=== PATIENT | female | born 1985 | race African-American/Black ===

== ENCOUNTER 2016-09-25 11:12 | Emergency (ER) | payer MEDICAID, OTHER ==
[~2016-09-25] VITALS: Ht 170.2 cm; Wt 70.0 kg
[~2016-09-25 11:12] MED LIST: BACT800T5 PO; CEPH500C3 PO; DOXY100T PO; NAPR-576 PO; NAPR250T57 PO
[2016-09-25 11:14] VITALS: BP 141/92; PULSE 80; RESP 20; TEMP 98.1; O2SAT 100
[2016-09-25] MEDS ORDERED: ACETAMINOPHEN/HYDROcodone 325 MG/5 MG TAB PO ONE (12:45)
[2016-09-25] MEDS ORDERED: MOBI15TA PO (12:47)
[2016-09-25] MEDS ORDERED: CYCL1TAB29 PO (12:47)
--- NOTE | 2016-09-25 12:48 | PD ---
HPI Chief Complaint: Back/ Neck Pain or Injury Time Seen by Provider: 12:47 Travel History International Travel<30 days: No Contact w/Intl Traveler<30days: No Traveled to known affect area: No History of Present Illness HPI 31-year-old female with a history of chronic low back pain presents to the emergency department for evaluation of low back pain and left knee pain. Patient denies any new injury or trauma to her back or knee. States it has been bothering her for the past 3 days because she ran out of her pain medications for her back. States that she missed her appointment with her pain management physician 3 days ago and has been calling trying to reschedule her appointment. States that she typically takes oxycodone 30 mg tablets, Flexeril and Mobic for her low back pain. She's been out of all of these medications. She also complains of pain in the left knee, this is been going on for several years as well, no new injury or trauma. Denies any fever, chills, nausea, vomiting, numbness or tingling, weakness. Denies , she is currently on her menstrual cycle. No other complaints. PFSH Past Medical History Diminished Hearing: No Herniated Disk: Yes Musculoskeletal: Yes (PT C/O CHRONIC BACK PAIN S/P HER EPIDURAL DURING CHILDBIRTH) Immunizations Current: Yes ?: Not : 6 Para: 2 Miscarriage: 3 Tubal Ligation: Yes Social History Alcohol Use: No Tobacco Use: Yes (1 ppd) Substance Use: No Allergies-Medications (Allergen,Severity, Reaction): Coded Allergies: Codeine (Verified Allergy, Severe, 09/25/16) PT DENIES ALLERGY. STATES SHE HAS TAKEN IT SINCE AND HAD NO PROBLEMS. 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 STATES SHE HAS TAKEN IT SINCE AND HAD NO PROBLEMS. Reported Meds & Prescriptions Reported Meds & Active Scripts Active Mobic (Meloxicam) 15 Mg Tab 15 Mg PO DAILY 7 Days Flexeril (Cyclobenzaprine HCl) 10 Mg Tab 10 Mg PO TID 7 Days Review of Systems Except as stated in HPI: all other systems reviewed are Neg Physical Exam Narrative GENERAL: Well-nourished and well-developed pleasant female patient in no acute distress who is nontoxic appearing. SKIN: Warm and dry. HEAD: Normocephalic and atraumatic. EYES: No injection, drainage, or hyphema noted. PERRLA. EOMI. ENT: No nasal drainage noted. Oropharynx is clear. NECK: Supple and the trachea is midline. CARDIOVASCULAR: Regular rate and rhythm. RESPIRATORY: Breath sounds are equal bilaterally with no accessory muscle use, wheezing, rhonchi, or crackles. MUSCULOSKELETAL: Left SLR positive. No obvious deformities, swelling, cyanosis , or ecchymosis is present throughout the upper and lower extremities. Patient has full range of motion without any signs of neurovascular compromise. Strength 5/5 upper and lower extremities and equal bilaterally. BACK: Nontender without any obvious deformities, bony point tenderness, or crepitus noted throughout the thoracic and lumbar vertebrae. NEUROLOGICAL: Awake, alert, and oriented. Normal speech and gait. Cranial nerves are grossly intact. Data Data Last Documented VS Vital Signs Date Time Temp Pulse Resp B/P Pulse Ox O2 Delivery O2 Flow Rate FiO2 09/25/16 11:14 98.1 80 20 141/92 100 Room Air Orders Acetamin-Hydrocod 325-5 Mg ([place] 5-325 (09/25/16 12:45) MDM Medical Decision Making Medical Screen Exam Complete: Yes Emergency Medical Condition: Yes Differential Diagnosis Chronic low back pain versus knee sprain versus arthritis versus discogenic pain Narrative Course 31-year-old female presents to the emergency department for evaluation of chronic low back pain and left knee pain for the past 3 days after running out of her pain medications. Patient is afebrile, vital signs are stable. No focal neurologic deficits or red flag signs or symptoms. The patient will be given a dose of Lortab 5325 milligrams here in the emergency department. I discussed with her that we will refill her nonnarcotic medications. She is instructed to follow-up with her pain management physician. Patient is agreeable to this plan. Diagnosis Primary Impression: Chronic low back pain Qualified Code: M54.5 - Chronic low back pain without sciatica, unspecified back pain laterality Referrals: Primary Care Physician Patient Instructions: Back Pain (ED), General Instructions Additional Instructions: Take medications as prescribed with food and a full glass of water. Do not take Flexeril with alcohol or while driving. Follow-up with your pain management physician. Return to the ED for any acute worsening of symptoms. Med/Other Pt SpecificInfo: Prescription(s) given Scripts Meloxicam (Mobic)15 Mg Tab15 Mg PO DAILY 7 Days Ref 0 Prov:Jaye Elizalde MD 09/25/16 Cyclobenzaprine (Flexeril)10 Mg Tab10 Mg PO TID 7 Days Ref 0 Prov:Jaye Elizalde MD 09/25/16 Disposition: 01 DISCHARGE HOME Condition: Stable Nette Pratt Sep 25, 2016 12:48
== END 2016-09-25 13:10 | disposition home or self-care (01) ==
LOC: NEPB 11:12
DX: M54.5 Low back pain (principal); F17.210 Nicotine dependence, cigarettes, uncomplicated
CPT/HCPCS: 99283

== ENCOUNTER 2016-12-14 14:49 | Emergency (ER) | payer OTHER ==
[~2016-12-14 14:49] MED LIST changes: -BACT800T5 PO; -CEPH500C3 PO; +CYCL1TAB29 PO; -DOXY100T PO; +MOBI15TA PO; -NAPR-576 PO; -NAPR250T57 PO
[2016-12-14 14:50] VITALS: BP 140/92; PULSE 92; RESP 20; TEMP 98.7; O2SAT 99
[2016-12-14 15:55] LABS: BACTERIA, URINE RARE /hpf; BLOOD, URINE TRACE (NEG); COMMENT (UR) CULTURE INDICATED; CULTURE IF INDICATED CULTURE INDICATED; GLUCOSE,URINE NEG (NEG); KETONE, URINE NEG (NEG); MUCUS URINE FEW /lpf (OCC); NITRITE,URINE NEG (NEG); SQUAMOUS EPITHELIAL CELL URINE 7 /hpf (0-5); URINE COLOR YELLOW (YELLW/STRAW)
[2016-12-14] MEDS ORDERED: AMOX875T PO (17:18)
[2016-12-14] MEDS ORDERED: IBUP800T23 PO (17:18)
--- NOTE | 2016-12-14 17:18 | PD ---
HPI Chief Complaint: Abdominal Pain Time Seen by Provider: 17:07 Travel History International Travel<30 days: No Contact w/Intl Traveler<30days: No Traveled to known affect area: No History of Present Illness HPI Patient is a 31-year-old female presenting to emergency for evaluation of right lower tooth pain as well as abdominal pain. Patient states that her tooth has been bothering her for 1 week since the filling came out. She reports her pain is a 10 out of 10, is relieved somewhat with a muscle relaxer that she took at home. She has not taken any Tylenol or ibuprofen. She denies any fevers, chills, headache, dysphagia. She has not attempted to contact a dentist. She also presents complaining of suprapubic pressure for one week as well, she states that her PERFORATOR OPERATOR told her to come to the emergency department to be evaluated, patient had a bilateral tubal ligation 2 years ago. She reports her last menstrual cycle was on October 22. [facility] Past Medical History Medical History: Denies Significant Hx Diminished Hearing: No Herniated Disk: Yes Musculoskeletal: Yes (PT C/O CHRONIC BACK PAIN S/P HER EPIDURAL DURING CHILDBIRTH) Immunizations Current: Yes ?: Not LMP: 10/22/16 Menopausal: No : 6 Para: 2 Miscarriage: 3 Tubal Ligation: Yes Past Surgical History Gynecologic Surgery: Yes (BTL) Social History Alcohol Use: No (social) Tobacco Use: Yes (08/25 ppd) Substance Use: No Allergies-Medications (Allergen,Severity, Reaction): Coded Allergies: *MDRO Multi-Drug Resistant Organism (Verified Allergy, Unknown, 09/25/16) 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 Codeine (Verified Adverse Reaction, Mild, 12/14/16) GI UPSET Tylenol #3 (Verified Adverse Reaction, Mild, GI UPSET, 12/14/16) GI UPSET Reported Meds & Prescriptions Reported Meds & Active Scripts Active No Active Prescriptions or Reported Medications Review of Systems Except as stated in HPI: all other systems reviewed are Neg General / Constitutional: No: Fever, Chills Eyes: No: Visual changes HENT: Positive: Dental Difficulties, No: Headaches, Neck Pain Cardiovascular: No: Chest Pain or Discomfort Respiratory: No: Shortness of Breath Gastrointestinal: No: Nausea, Vomiting, Diarrhea, Abdominal Pain Genitourinary: Positive: Pelvic Pain, No: Dysuria, Discharge, Vaginal Bleeding Musculoskeletal: No: Myalgias Neurologic: No: Weakness, Dizziness, Syncope Physical Exam Narrative GENERAL: Well-developed, well-nourished, alert female. Resting comfortably in no acute distress. SKIN: Focused skin assessment warm/dry. HEAD: Atraumatic. Normocephalic. MOUTH: Mucous membranes moist, no lesions, tongue and gums appear normal. Patient has missing and broken teeth in the left lower. No obvious abscess is noted EYES: Pupils equal and round. No scleral icterus. No injection or drainage. ENT: No nasal bleeding or discharge. Mucous membranes pink and moist. NECK: Trachea midline. No JVD. CARDIOVASCULAR: Regular rate and rhythm. No murmur appreciated. RESPIRATORY: No accessory muscle use. Clear to auscultation. Breath sounds equal bilaterally. GASTROINTESTINAL: Abdomen soft, non-tender, nondistended. Hepatic and splenic margins not palpable. No rebound, no guarding, positive bowel sounds. MUSCULOSKELETAL: No obvious deformities. No clubbing. No cyanosis. No edema. NEUROLOGICAL: Awake and alert. No obvious cranial nerve deficits. Motor grossly within normal limits. Normal speech. PSYCHIATRIC: Appropriate mood and affect; insight and judgment normal. Data Data Last Documented VS Vital Signs Date Time Temp Pulse Resp B/P Pulse Ox O2 Delivery O2 Flow Rate FiO2 12/14/16 14:50 98.7 92 20 140/92 99 Room Air Orders Urinalysis - C+S If Indicated (12/14/16 15:21) Ed Urine Pregnancytest Poc (12/14/16 15:21) Urine Culture (12/14/16 15:25) Labs Laboratory Tests Test 12/14/16 15:25 Urine Color YELLOW Urine Turbidity HAZY Urine pH 6.0 Urine Specific [place] 1.021 Urine Protein TRACE mg/dL Urine Glucose (UA) NEG mg/dL Urine Ketones NEG mg/dL Urine Occult Blood TRACE Urine Nitrite NEG Urine Bilirubin NEG Urine Urobilinogen LESS THAN 2.0 MG/DL Urine Leukocyte Esterase LARGE Urine RBC 21 /hpf Urine WBC 53 /hpf Urine Squamous Epithelial 7 /hpf Cells Urine Bacteria RARE /hpf Urine Mucus FEW /lpf Urine Yeast (Budding) OCC Microscopic Urinalysis Comment CULTURE INDICATED MDM Medical Decision Making Medical Screen Exam Complete: Yes Emergency Medical Condition: Yes Medical Record Reviewed: Yes Interpretation(s) Vital Signs Date Time Temp Pulse Resp B/P Pulse Ox O2 Delivery O2 Flow Rate FiO2 12/14/16 14:50 98.7 92 20 140/92 99 Room Air Differential Diagnosis Dysmenorrhea versus dental abscess versus dental caries versus urinary tract infection versus ovarian cyst versus other Narrative Course Patient is a 31-year-old female presenting to the emergency Department with 2 medical complaints. First she's had dental pain for the last week reporting that her filling fell out, there are missing and broken teeth in the left lower side where the pain is. Additionally she reports suprapubic and left flank pain. Urinalysis is indicative of a urinary tract infection. Upon review of patient's medical records she does have a history of a left ovarian cyst. She' s had a tubal ligation and a negative urine test in the emergency department. Patient's abdominal exam was completely benign. Patient was not guarding palpation, and actually seemed bothered by the physical assessment. With a negative urine and benign abdominal exam coupled with a bilateral tubal ligation, there is little reason patient would be at risk for an ectopic . Discussed with my attending physician. Patient's vital signs are stable. She will be treated for a urinary tract infection as well as a dental infection. She will be given a list of local dentists in the area to follow up with. She is encouraged to return to emergency department for any new or worsening symptoms. Patient verbalized understanding of instructions. Patient is stable for discharge. Diagnosis Primary Impression: Pain, dental Additional Impressions: Dental caries noted on examination Urinary tract infection Qualified Code: N39.0 - Urinary tract infection with hematuria, site unspecified Referrals: [facility] Primary Care Physician Patient Instructions: Dental Caries (DC), General Instructions, Urinary Tract Infection in Women (ED) Additional Instructions: Follow-up with a primary doctor or at the [facility] You will need to see a dentist for further evaluation and management of dental pain and dental infection Take medications as directed, complete full course of antibiotic therapy as prescribed even if you begin to feel better Return to emergency department for any new or worsening symptoms Med/Other Pt SpecificInfo: Prescription(s) given, Existing Med Changed Scripts Ibuprofen 800 Mg [id number] Mg PO Q6HR PRN (PAIN) #40 TAB Ref 0 Prov:Mary Crum 12/14/16 Amoxicillin 875 Mg [id number] Mg PO BID 10 Days Ref 0 Prov:Mary Crum 12/14/16 Disposition: 01 DISCHARGE HOME Condition: Stable Mary Crum Dec 14, 2016 17:18
== END 2016-12-14 18:32 | disposition home or self-care (01) ==
LOC: NEPD 14:49
DX: F17.210 Nicotine dependence, cigarettes, uncomplicated (principal); K02.9 Dental caries, unspecified; N39.0 Urinary tract infection, site not specified; B96.89 Other specified bacterial agents as the cause of diseases classified elsewhere
CPT/HCPCS: 81001; 84703; 87086; 99284

== ENCOUNTER 2016-12-25 10:16 | Emergency (ER) | payer MEDICAID, OTHER ==
[~2016-12-25] VITALS: Ht 170.2 cm; Wt 72.0 kg
[~2016-12-25 10:16] MED LIST changes: +AMOX875T PO; -CYCL1TAB29 PO; +IBUP800T23 PO; -MOBI15TA PO
[2016-12-25 10:19] VITALS: BP 162/98; PULSE 91; RESP 20; TEMP 98.1; O2SAT 100
[2016-12-25] MEDS ORDERED: KETOROLAC TROMETHAMINE 30 MG/ML (IVP) VIAL IV PUSH ONE (11:00)
--- NOTE | 2016-12-25 11:27 | RADRPT ---
EXAM DATE/TIME: 12/25/2016 11:08 [place] COMPARISON: CHEST PA & LAT, August 08, 2015, 11:05. INDICATIONS : Chest pain today. MEDICAL HISTORY : None. SURGICAL HISTORY : None. ENCOUNTER: Initial ACUITY: 1 day PAIN SCORE: 9/10 LOCATION: Bilateral chest FINDINGS: PA and lateral views of the chest demonstrate the lungs to be symmetrically aerated without evidence of mass, infiltrate or effusion. The cardiomediastinal contours are unremarkable. Osseous structure s are intact. CONCLUSION: Normal examination. Colby Haddad Jr., MD on December 25, 2016 at 11:25 Board Certified Radiologist. This report was verified electronically.
[2016-12-25 11:45] LABS: AUTOMATED NEUTROPHIL # 6.7 TH/MM3 (1.8-7.7); BASOPHIL % 0.4 % (0.0-2.0); EOSINOPHIL # 0.1 TH/MM3 (0-0.4); EOSINOPHIL % 1.1 % (0.0-4.0); HEMATOCRIT 36.6 % (35.0-46.0); HEMO FLAGS DIFF FINAL; LYMPH % 22.4 % (9.0-44.0); LYMPHOCYTE # 2.2 TH/MM3 (1.0-4.8); MEAN CELL VOLUME 96.1 FL (80.0-100.0); MEAN CORPUSCULAR HEMOGLOBIN 33.3 PG (27.0-34.0); MEAN CORPUSCULAR HGB CONC 34.6 % (32.0-36.0); MONO % 9.1 % (0.0-8.0); PLATELET COUNT 181 TH/MM3 (150-450); RED BLOOD COUNT 3.81 MIL/MM3 (4.00-5.30); RED CELL DISTRIBUTION WIDTH 12.1 % (11.6-17.2); WHITE BLOOD COUNT 9.9 TH/MM3 (4.0-11.0)
[2016-12-25 11:57] LABS: ALT (GPT) 21 U/L (10-53); ANION GAP 8 MEQ/L (5-15); AST (GOT) 23 U/L (15-37); BLOOD UREA NITROGEN 8 MG/DL (7-18); CHLORIDE 108 MEQ/L (98-107); GLOMERULAR FILTRATION RATE 101 ML/MIN (>89); POTASSIUM 3.5 MEQ/L (3.5-5.1); SODIUM (NA) 141 MEQ/L (136-145)
[2016-12-25 12:02] LABS: ALKALINE PHOSPHATASE 63 U/L (45-117); TOTAL BILIRUBIN ADULT 0.4 MG/DL (0.2-1.0)
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
[2016-12-25 12:32] VITALS: BP 129/80; PULSE 75; RESP 18; TEMP 98.7; O2SAT 99
--- NOTE | 2016-12-25 18:26 | EKG ---
Date Performed: 12/25/2016 Time Performed: 10:36:52 PTAGE: 31 years EKG: Sinus rhythm NORMAL ECG Compared to prior tracing no significant change PREVIOUS TRACING on 01/07/2013 DOCTOR: James Guerrero Interpretating Date/Time 12/25/2016 18:23:52
== END 2016-12-25 13:32 | disposition home or self-care (01) ==
LOC: NEPD 10:16
DX: R07.89 Other chest pain (principal); R51 Headache; R07.1 Chest pain on breathing; F17.210 Nicotine dependence, cigarettes, uncomplicated; V18.0XXA Pedal cycle driver injured in noncollision transport accident in nontraffic accident, initial encounter; Y93.55 Activity, bike riding; Y92.9 Unspecified place or not applicable; Y99.8 Other external cause status
CPT/HCPCS: 71020; 80053; 84484; 85025; 85379; 93005; 96374; 99285; J1885

== ENCOUNTER 2017-12-02 11:09 | Emergency (ER) | payer MEDICAID ==
[~2017-12-02] VITALS: Ht 170.2 cm; Wt 76.0 kg
[~2017-12-02 11:09] MED LIST changes: +IBUP1TAB7 PO; -IBUP800T23 PO
[2017-12-02 11:43] VITALS: BP 139/75; PULSE 67; RESP 17; TEMP 98.4; O2SAT 100
[2017-12-02 12:34] LABS: AUTOMATED NEUTROPHIL # 2.7 TH/MM3 (1.8-7.7); BASOPHIL % 0.7 % (0.0-2.0); EOSINOPHIL # 0.4 TH/MM3 (0-0.4); EOSINOPHIL % 6.5 % (0.0-4.0); HEMOGLOBIN 14.1 GM/DL (11.6-15.3); LYMPH % 35.5 % (9.0-44.0); MEAN CELL VOLUME 96.6 FL (80.0-100.0); MEAN CORPUSCULAR HGB CONC 35.2 % (32.0-36.0); MEAN PLATELET VOLUME 9.2 FL (7.0-11.0); MONO % 9.2 % (0.0-8.0); MONOCYTE # 0.5 TH/MM3 (0-0.9); NEUT % 48.1 % (16.0-70.0); PLATELET COUNT 220 TH/MM3 (150-450); RED BLOOD COUNT 4.15 MIL/MM3 (4.00-5.30); RED CELL DISTRIBUTION WIDTH 11.7 % (11.6-17.2); WHITE BLOOD COUNT 5.6 TH/MM3 (4.0-11.0)
[2017-12-02 12:44] LABS: BACTERIA, URINE MANY /hpf; BILIRUBIN, URINE NEG (NEG); BLOOD, URINE TRACE (NEG); GLUCOSE,URINE NEG (NEG); KETONE, URINE NEG (NEG); MUCUS URINE MANY /lpf (OCC); NITRITE,URINE POS (NEG); SQUAMOUS EPITHELIAL CELL URINE 6 /hpf (0-5); URINE COLOR YELLOW (YELLW/STRAW); URINE LEUKOCYTE ESTERASE LARGE (NEG); WHITE BLOOD CELL CLUMPS RARE
[2017-12-02 13:08] LABS: ALBUMIN 4.3 GM/DL (3.4-5.0); ALT (GPT) 24 U/L (10-53); AST (GOT) 20 U/L (15-37); BICARBONATE 29.4 MEQ/L (21.0-32.0); BLOOD UREA NITROGEN 8 MG/DL (7-18); CALCIUM 9.5 MG/DL (8.5-10.1); CHLORIDE 106 MEQ/L (98-107); GLOMERULAR FILTRATION RATE 77 ML/MIN (>89); GLUCOSE,RANDOM 89 MG/DL (74-106); SODIUM (NA) 140 MEQ/L (136-145)
[2017-12-02 13:09] LABS: ALKALINE PHOSPHATASE 79 U/L (45-117); TOTAL BILIRUBIN ADULT 0.3 MG/DL (0.2-1.0)
[2017-12-02] MEDS ORDERED: ZOFR4TAB3 SL (13:58)
[2017-12-02] MEDS ORDERED: MACR100C2 PO (13:58)
--- NOTE | 2017-12-02 13:58 | PD ---
HPI Chief Complaint: GI Complaint Time Seen by Provider: 13:51 Travel History International Travel<30 days: No Contact w/Intl Traveler<30days: No Traveled to known affect area: No History of Present Illness HPI Patient comes in complaining of intermittent suprapubic crampy 6 out of 10 pain associated with hematuria, denies any fever. Denies any associated factors such as a fever rash, PFSH Past Medical History Diminished Hearing: No Herniated Disk: Yes Hypertension: Yes Musculoskeletal: Yes (PT C/O CHRONIC BACK PAIN S/P HER EPIDURAL DURING CHILDBIRTH) Immunizations Current: Yes ?: Unknown Menopausal: No : 6 Para: 2 Miscarriage: 3 Tubal Ligation: Yes Past Surgical History Gynecologic Surgery: Yes (BTL (tube blockage)) Social History Alcohol Use: Yes (social) Tobacco Use: Yes (1ppd) Substance Use: No (hx of ) Allergies-Medications (Allergen,Severity, Reaction): Coded Allergies: *MDRO Multi-Drug Resistant Organism (Verified Allergy, Unknown, 09/25/16) 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 acetaminophen (Unverified Adverse Reaction, Mild, GI UPSET, 04/07/17) GI UPSET codeine (Unverified Adverse Reaction, Mild, GI UPSET, 04/07/17) GI UPSET Reported Meds & Prescriptions Reported Meds & Active Scripts Active Ibuprofen 800 Mg Tab 800 Mg PO Q6HR PRN Amoxicillin 875 Mg Tab 875 Mg PO BID 10 Days Review of Systems General / Constitutional: No: Fever Eyes: No: Visual changes HENT: No: Headaches Cardiovascular: No: Chest Pain or Discomfort Respiratory: No: Shortness of Breath Gastrointestinal: No: Abdominal Pain Genitourinary: Positive: Urgency, Frequency, Dysuria, Hematuria Musculoskeletal: No: Pain Skin: No Rash Neurologic: No: Weakness Psychiatric: No: Depression Endocrine: No: Polydipsia Hematologic/Lymphatic: No: Easy Bruising Physical Exam Narrative GENERAL: SKIN: Warm and dry. HEAD: Atraumatic. Normocephalic. EYES: Pupils equal and round. No scleral icterus. No injection or drainage. ENT: No nasal bleeding or discharge. Mucous membranes pink and moist. NECK: Trachea midline. No JVD. CARDIOVASCULAR: Regular rate and rhythm. RESPIRATORY: No accessory muscle use. Clear to auscultation. Breath sounds equal bilaterally. GASTROINTESTINAL: Abdomen soft, non-tender, nondistended. MUSCULOSKELETAL: Extremities without clubbing, cyanosis, or edema. No obvious deformities. NEUROLOGICAL: Awake and alert. No obvious cranial nerve deficits. Motor grossly within normal limits. Five out of 5 muscle strength in the arms and legs. Normal speech. PSYCHIATRIC: Appropriate mood and affect; insight and judgment normal. Data Data Last Documented VS Vital Signs Date Time Temp Pulse Resp B/P (MAP) Pulse Ox O2 Delivery O2 Flow Rate FiO2 12/02/17 11:43 98.4 67 17 139/75 (96) 100 Orders Orders Complete Blood Count With Diff (12/02/17 11:47) Comprehensive Metabolic Panel (12/02/17 11:47) Urinalysis - C+S If Indicated (12/02/17 11:47) Lipase (12/02/17 11:47) Urine Culture (12/02/17 12:17) Labs Laboratory Tests Test 12/02/17 12:17 White Blood Count 5.6 TH/MM3 Red Blood Count 4.15 MIL/MM3 Hemoglobin 14.1 GM/DL Hematocrit 40.0 % Mean Corpuscular Volume 96.6 FL Mean Corpuscular Hemoglobin 34.0 PG Mean Corpuscular Hemoglobin Concent 35.2 % Red Cell Distribution Width 11.7 % Platelet Count 220 TH/MM3 Mean Platelet Volume 9.2 FL Neutrophils (%) (Auto) 48.1 % Lymphocytes (%) (Auto) 35.5 % Monocytes (%) (Auto) 9.2 % Eosinophils (%) (Auto) 6.5 % Basophils (%) (Auto) 0.7 % Neutrophils # (Auto) 2.7 TH/MM3 Lymphocytes # (Auto) 2.0 TH/MM3 Monocytes # (Auto) 0.5 TH/MM3 Eosinophils # (Auto) 0.4 TH/MM3 Basophils # (Auto) 0.0 TH/MM3 CBC Comment DIFF FINAL Differential Comment Urine Color YELLOW Urine Turbidity HAZY Urine pH 6.0 Urine Specific [place] 1.019 Urine Protein TRACE mg/dL Urine Glucose (UA) NEG mg/dL Urine Ketones NEG mg/dL Urine Occult Blood TRACE Urine Nitrite POS Urine Bilirubin NEG Urine Urobilinogen LESS THAN 2.0 MG/DL Urine Leukocyte Esterase LARGE Urine RBC 7 /hpf Urine WBC 34 /hpf Urine WBC Clumps RARE Urine Squamous Epithelial Cells 6 /hpf Urine Bacteria MANY /hpf Urine Mucus MANY /lpf Microscopic Urinalysis Comment CULTURE INDICATED Blood Urea Nitrogen 8 MG/DL Creatinine 1.00 MG/DL Random Glucose 89 MG/DL Total Protein 9.0 GM/DL Albumin 4.3 GM/DL Calcium Level 9.5 MG/DL Alkaline Phosphatase 79 U/L Aspartate Amino Transf (AST/SGOT) 20 U/L Alanine Aminotransferase (ALT/SGPT) 24 U/L Total Bilirubin 0.3 MG/DL Sodium Level 140 MEQ/L Potassium Level 3.5 MEQ/L Chloride Level 106 MEQ/L Carbon Dioxide Level 29.4 MEQ/L Anion Gap 5 MEQ/L Estimat Glomerular Filtration Rate 77 ML/MIN Lipase 300 U/L [facility] Medical Decision Making Medical Screen Exam Complete: Yes Emergency Medical Condition: Yes Medical Record Reviewed: Yes Differential Diagnosis related ectopic versus UTI versus Narrative Course CBC, CMP are all within normal limits, the UA is positive for a moderate to severe UTI, and urine test is negative as recorded. Diagnosis Primary Impression: UTI Patient Instructions: General Instructions, Urinary Tract Infection in Women ( ED) Scripts Ondansetron Odt (Zofran Odt) 4 Mg Tab 4 MG SL Q8HR Y for Nausea/Vomiting, #15 TAB 0 Refills Prov: Adolfo Barajas MD 12/02/17 Nitrofurantoin Monohydrate Macrocrystals (Macrobid) 100 Mg Capsule 100 MG PO BID for Infection for 10 Days, #20 CAP 0 Refills Prov: Adolfo Barajas MD 12/02/17 Disposition: 01 DISCHARGE HOME Condition: Stable Adolfo Barajas MD Dec 02, 2017 13:58
[2017-12-02] MEDS ORDERED: NITROFURANTOIN MONOHYD MACROCR 100 MG CAP PO ONE (14:00)
== END 2017-12-02 14:56 | disposition home or self-care (01) ==
LOC: NEPD 11:09
DX: N39.0 Urinary tract infection, site not specified (principal); B96.20 Unspecified Escherichia coli [E. coli] as the cause of diseases classified elsewhere; I10 Essential (primary) hypertension; G89.29 Other chronic pain; M54.9 Dorsalgia, unspecified; F17.200 Nicotine dependence, unspecified, uncomplicated
CPT/HCPCS: 80053; 81001; 83690; 84703; 85025; 87077; 87086; 87186; 99283